=== PATIENT | female | born 1945 | race Caucasian/White ===

== ENCOUNTER 2019-08-06 17:03 | Emergency (ER) | payer MEDICARE, OTHER ==
[2019-08-06 18:36] LABS: ANION GAP 13.5; CHLORIDE,CL 94 mmol/L (101-111); SODIUM,NA 131 mmol/L (135-145)
--- NOTE | 2019-08-06 18:51 | EDM.PDOC ---
Scribed by Tiff Carey 08/06/19 [id number] for Ozzie Neri PA ED HPI GENERAL MEDICAL PROBLEM - General Source of Information: Reports: Patient, Family, RN, RN Notes Reviewed History Limitations: Reports: No Limitations - History of Present Illness Onset: Today Duration: Resolved Prior to Arrival Severity: Moderate Improves with: Reports: None Worsens with: Reports: None Associated Symptoms: Reports: No Other Symptoms <Ozzie Neri - Last Filed: 08/06/19 18:51> <Kevin Moreira - Last Filed: 08/07/19 06:24> - General Chief Complaint: Syncope Stated Complaint: NEED LABS CHECK. Time Seen by Provider: 08/06/19 17:35 - History of Present Illness INITIAL COMMENTS - FREE TEXT/NARRATIVE: Patient is a 74-year-old female who presents to ER being dizzy and feeling "woozy" about 2 hour ago. She had a similar episode "a couple of weeks ago" in [place]. No follow up after that visit. The son reports that the patient was telling a story to family, then started to get confused in the middle of the story. The patient started to fall, but was caught by family. (Tiff Carey) Patient is a 74-year-old female who presents to ER being dizzy and feeling "woozy" about 2 hour ago. She had a similar episode "a couple of weeks ago" in [place]. No follow up after that visit. The son reports that the patient was telling a story to family, then started to get confused in the middle of the story. The patient started to fall, but was caught by family. (Ozzie Neri) - Related Data Allergies Allergy/AdvReac Type Severity Reaction Status Date / Time Unable to Assess Allergy Verified 08/06/19 17:46 Home Meds: Home Meds Aspirin 81 mg PO DAILY 08/06/19 [History] Calcium Carb, Citrate/Vit D3 [Calcium + D3 ER Tablet] 1 each PO DAILY 08/06/19 [ History] Escitalopram [Lexapro] 20 mg PO DAILY 08/06/19 [History] Folic Acid 800 mcg PO DAILY 08/06/19 [History] Hydrochlorothiazide [Microzide] 12.5 mg PO DAILY 08/06/19 [History] Ibuprofen 400 mg PO Q6H PRN 08/06/19 [History] LORazepam [Ativan] 0.5 - 1 mg PO Q6H PRN 08/06/19 [History] Levothyroxine 25 mcg PO ACBREAKFAST 08/06/19 [History] Lisinopril [Zestril] 20 mg PO BID 08/06/19 [History] Magnesium Oxide [Magnesium] 500 mg PO DAILY 08/06/19 [History] Mv-Mn/Iron/FA/Herbal/Digestive [ One Tablet] 1 each PO DAILY 08/06/19 [ History] Nebivolol [Bystolic] 40 mg PO DAILY 08/06/19 [History] amLODIPine [Norvasc] 5 mg PO DAILY 08/06/19 [History] dexAMETHasone [Decadron 0.1% Ophth Soln] 5 ml EYELF BEDTIME 08/06/19 [History] Past Medical History HEENT History: Reports: Cataract Cardiovascular History: Reports: High Cholesterol, Hypertension Respiratory History: Reports: None Gastrointestinal History: Reports: None Genitourinary History: Reports: None 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 Musculoskeletal History: Reports: Arthritis, Fracture Neurological History: Reports: None Psychiatric History: Reports: Dementia Endocrine/Metabolic History: Reports: Hypothyroidism Hematologic History: Reports: None Immunologic History: Reports: None Oncologic (Cancer) History: Reports: None Dermatologic History: Reports: None - Infectious Disease History Infectious Disease History: Reports: None - Past Surgical History Head Surgeries/Procedures: Reports: None HEENT Surgical History: Reports: Cataract Surgery, Other (See Below) Other HEENT Surgeries/Procedures: left corneal ransplant Musculoskeletal Surgical History: Reports: Other (See Below) Other Musculoskeletal Surgeries/Procedures:: left left femur pins <Ozzie Neri M - Last Filed: 08/06/19 18:51> Social & Family History - Family History Family Medical History: Noncontributory - Tobacco Use Smoking Status *Q: Never Smoker Second Hand Smoke Exposure: No - Caffeine Use Caffeine Use: Reports: Coffee - Recreational Drug Use Recreational Drug Use: No <Ozzie Neri M - Last Filed: 08/06/19 18:51> ED ROS GENERAL - Review of Systems Review Of Systems: Comprehensive ROS is negative, except as noted in HPI. <Ozzie Neri - Last Filed: 08/06/19 18:51> - Physical Exam Exam: See Below Exam Limited By: No Limitations General Appearance: Alert, WD/WN, No Apparent Distress Eye Exam: Bilateral Eye: EOMI, Normal Inspection, PERRL Ears: Normal External Exam, Normal Canal, Hearing Grossly Normal, Normal TMs Nose: Normal Inspection, Normal Mucosa, No Blood Throat/Mouth: Normal Inspection, Normal Lips, Normal Teeth, Normal Gums, Normal Oropharynx, Normal Voice, No Airway Compromise Head Exam: Atraumatic, Normocephalic Neck: Normal Inspection, Supple, Non-Tender, Full Range of Motion Respiratory/Chest: No Respiratory Distress, Lungs Clear, Normal Breath Sounds, No Accessory Muscle Use, Chest Non-Tender Cardiovascular: Normal Peripheral Pulses, Regular Rate, Rhythm, No Edema, No Gallop, No JVD, No Murmur, No Rub GI/Abdominal: Normal Bowel Sounds, Soft, Non-Tender, No Organomegaly, No Distention, No Abnormal Bruit, No Mass (Female) Exam: Deferred Rectal (Female) Exam: Deferred Neuro Exam (Abbreviated): Alert, Oriented, CN II-XII Intact, Normal Cognition, Normal Gait, Normal Reflexes, No Motor/Sensory Deficits Back Exam: Normal Inspection, Full Range of Motion, NT Extremities: Normal Inspection, Normal Range of Motion, Non-Tender, No Pedal Edema, Normal Capillary Refill Psychiatric: Normal Affect, Normal Mood Skin Exam: Warm, Dry, Intact, Normal Color, No Rash <Ozzie Neri M - Last Filed: 08/06/19 18:51> Course <Ozzie Neri - Last Filed: 08/06/19 18:51> <Kevin Moreira - Last Filed: 08/07/19 06:24> - Vital Signs Last Recorded V/S: Last Vital Signs Temp 36.7 C 08/06/19 20:44 Pulse 89 08/06/19 20:44 Resp 20 08/06/19 20:44 BP 130/77 08/06/19 20:44 Pulse Ox 92 L 08/06/19 20:44 Orthostatic Blood Pressure [ 166/70 Standing] Orthostatic Blood Pressure [ 169/70 Sitting] Orthostatic Blood Pressure [ 165/65 Supine] - Orders/Labs/Meds Orders: Active Orders 24 hr Category Date Time Status EKG 12 Lead [EKG Documentation Completion] [RC] STAT Care 08/06/19 17:14 Active CULTURE URINE [RM] Urgent Lab 08/06/19 18:14 Received Labs: Laboratory Tests 08/06/19 08/06/19 08/06/19 Range/Units 18:09 18:09 18:14 WBC 8.8 (5.0-10.0) 10^3/uL RBC 4.22 (4.2-5.4) 10^6/uL Hgb 13.1 (12.0-16.0) g/dL Hct 38.1 (37.0-47.0) % MCV 90.3 (80-100) fL MCH 31.0 (27.0-34.0) pg MCHC 34.4 (33.0-35.0) g/dL Plt Count 284 (150-450) 10^3/uL Neut % (Auto) 65.6 (42.2-75.2) % Lymph % (Auto) 19.7 L (20.5-50.1) % [place] % (Auto) 12.1 H (2-8) % Eos % (Auto) 2.1 (1.0-3.0) % Baso % (Auto) 0.5 (0.0-1.0) % Sodium 131 L (135-145) mmol/L Potassium 3.5 L (3.6-5.0) mmol/L Chloride 94 L (101-111) mmol/L Carbon Dioxide 27.0 (21.0-31.0) mmol/L Anion Gap 13.5 BUN 24 H (7-18) mg/dL Creatinine 0.8 (0.6-1.3) mg/dL Est Cr Clr Drug Dosing 42.97 mL/min Estimated GFR (MDRD) > 60 BUN/Creatinine Ratio 30.00 Glucose 143 H (74-105) mg/dL Calcium 9.4 (8.4-10.2) mg/dl Total Bilirubin 0.5 (0.2-1.0) mg/dL AST 24 (10-42) IU/L ALT 16 (10-60) IU/L Alkaline Phosphatase 65 (42-121) IU/L Troponin I < 0.02 (0.00-0.02) ng/ml Total Protein 7.3 (6.7-8.2) g/dl Albumin 3.9 (3.2-5.5) g/dl Globulin 3.4 Albumin/Globulin Ratio 1.15 Urine Color Yellow (YELLOW) Urine Appearance Slightly cloudy (CLEAR) Urine pH 6.0 (5.0-9.0) Ur Specific [place] 1.015 (1.005-1.030) Urine Protein Negative (NEGATIVE) Urine Glucose (UA) Negative (NEGATIVE) Urine Ketones Negative (NEGATIVE) Urine Occult Blood Trace-intact H (NEGATIVE) Urine Nitrite Negative (NEGATIVE) Urine Bilirubin Negative (NEGATIVE) Urine Urobilinogen 0.2 (0.2-1.0) mg/dL Ur Leukocyte Esterase Large H (NEGATIVE) Urine RBC 5-10 H /HPF Urine WBC >100 H (0-5/HPF) /HPF Ur Epithelial Cells Moderate H (NOT SEEN) /HPF Urine Bacteria Moderate H (0-FEW/HPF) /HPF Hyaline Casts Few H (NOT SEEN) /LPF Meds: Medications Discontinued Medications Generic Name Dose Route Start Last Admin Trade Name Freq PRN Reason Stop Dose Admin Ceftriaxone Sodium 1,000 mg/ 100 mls @ 200 mls/hr 08/06/19 19:18 08/06/19 19: 34 Sodium Chloride IV 08/06/19 19:47 200 mls/hr ONETIME ONE Administration Lisinopril 20 mg 08/06/19 19:18 08/06/19 19:43 Prinivil PO 08/06/19 19:19 20 mg ONETIME ONE Administration - Re-Assessments/Exams Free Text/Narrative Re-Assessment/Exam: 08/06/19 19:19 results discussed with pt who states she feels fine right now. family states pt is back to normal now. (Kevin Moreira) Departure <Ozzie Neri - Last Filed: 08/06/19 18:51> - Departure Time of Disposition: 20:40 Condition: Good <Kevin Moreira - Last Filed: 08/07/19 06:24> - Departure Disposition: Home, Self-Care 01 Clinical Impression: UTI (urinary tract infection) Qualifiers: Urinary tract infection type: site unspecified Hematuria presence: with hematuria Qualified Code(s): N39.0 - Urinary tract infection, site not specified Syncope Qualifiers: Syncope type: unspecified Qualified Code(s): R55 - Syncope and collapse - Discharge Information Instructions: Near-Syncope, [id number] Forms: ED Department Discharge Additional Instructions: 1) drink lots of liquids 2) see family doctor when get home for the following test as a follow up for "recurrent near syncope" ECHOCARDIOGRAM, HOLTER MONITOR, STRESS TEST, MRI SCAN OF HEAD. rx given; keflex 250mg qid x 40 Sepsis Event Note - Evaluation Sepsis Screening Result: No Definite Risk - Focused Exam Date Exam was Performed: 08/06/19 Time Exam was Performed: 18:51 <Ozzie Neri - Last Filed: 08/06/19 18:51> - Focused Exam Date Exam was Performed: 08/07/19 Time Exam was Performed: 06:24 <Kevin Moreira - Last Filed: 08/07/19 06:24> - Focused Exam Vital Signs: Vital Signs Temp Pulse Resp BP BP Pulse Ox 08/06/19 20:44 36.7 C 89 20 130/77 92 L 08/06/19 19:43 145/69 H I have read and agree with the documentation that has been completed regarding this visit. By signing this record, I attest that the documentation was completed in my physical presence and is an accurate record of the encounter.
[2019-08-06] MEDS: Lisinopril 20 MG Tab PO ONE (19:43)
== END 2019-08-06 20:44 | disposition home or self-care (01) ==
LOC: DL.ED 17:03
DX: N39.0 Urinary tract infection, site not specified (principal); R55 Syncope and collapse
CPT/HCPCS: 36415; 70450; 71045; 80053; 81001; 84484; 85025; 87086; 93005; 96365; 99284; A9270; J0696; J7050